=== PATIENT | female | born 1970 | race Caucasian/White ===

== ENCOUNTER 2023-03-10 11:07 | Outpatient (CLI) | payer OTHER | END 2023-03-10 11:08 | disposition home or self-care (01) | LOC: CSHMAMMO 11:07 | PROVIDERS: ATTEND Obstetrics & Gynecology | DX: Z12.31 Encounter for screening mammogram for malignant neoplasm of breast (principal); Z98.82 Breast implant status | CPT/HCPCS: 77063; 77067 ==

== ENCOUNTER 2024-04-03 09:02 | Outpatient (CLI) | payer OTHER | END 2024-04-03 09:03 | disposition home or self-care (01) | LOC: CSHULT 09:02 | PROVIDERS: ATTEND Internal Medicine Gastroenterology | DX: K75.4 Autoimmune hepatitis (principal); K74.60 Unspecified cirrhosis of liver | CPT/HCPCS: 76705 ==